=== PATIENT | female | born 1935 | race Caucasian/White ===

== ENCOUNTER 2017-06-12 07:42 | Emergency (ER) | payer MEDICARE ==
[2017-06-12] MEDS ORDERED: AMOXicillin 250 MG CAP ONE (08:33)
[2017-06-12] MEDS ORDERED: predniSONE 20 MG TAB ONE (08:36)
== END 2017-06-12 08:42 | disposition home or self-care (01) ==
LOC: MADERS 07:42
DX: K02.9 Dental caries, unspecified (principal); I10 Essential (primary) hypertension; Z79.82 Long term (current) use of aspirin; Z79.899 Other long term (current) drug therapy
CPT/HCPCS: 99282; J7506

== ENCOUNTER 2017-06-13 18:03 | Emergency (ER) | payer MEDICARE ==
[2017-06-13] MEDS ORDERED: Naproxen 500 MG TAB ONE (18:28)
== END 2017-06-13 20:10 | disposition home or self-care (01) ==
LOC: MADERS 18:03
DX: K04.7 Periapical abscess without sinus (principal); K02.9 Dental caries, unspecified; I10 Essential (primary) hypertension; Z79.899 Other long term (current) drug therapy; Z79.82 Long term (current) use of aspirin
CPT/HCPCS: 99282

== ENCOUNTER 2017-07-12 09:36 | Emergency (ER) | payer MEDICARE ==
[2017-07-12 09:58] LABS: Bilirubin Negative (Negative); Blood, Urine Trace (Negative); Clarity Hazy (Clear); Glucose, Urine (Dipstick) Negative (Negative); Leukocyte Moderate (Negative); Nitrite Negative (Negative); Protein, Urine (Dipstick) Negative (Neg-Trace); Urobilinogen 0.2 mg/dL (0.2-1.0); pH, Urine 6.5 (5.0-9.0)
[2017-07-12 09:59] LABS: Bacteria/HPF 2+ HPF (None Seen); RBC/HPF 0-3 HPF (0-3); WBC/HPF 21-50 HPF (0-3)
[2017-07-12] MEDS ORDERED: Phenazopyridine HCl 97.5 MG TABLET ONE (10:15)
[2017-07-12] MEDS ORDERED: Ciprofloxacin 500 MG TAB ONE (10:15)
[2017-07-12] MEDS ORDERED: Fluconazole 100 MG TAB ONE (10:15)
== END 2017-07-12 10:31 | disposition home or self-care (01) ==
LOC: MADERS 09:36
DX: N39.0 Urinary tract infection, site not specified (principal); I10 Essential (primary) hypertension; Z79.82 Long term (current) use of aspirin; Z79.899 Other long term (current) drug therapy
CPT/HCPCS: 81001; 99283